=== PATIENT | male | born 1935 | race Caucasian/White ===

== ENCOUNTER → 2019-01-22 | Outpatient (CLI) | payer OTHER ==
[~2019-01-22] MED LIST: AMLO5 PO; ASPI325; ASPI81CH PO; ASPI81EC; ATOR40TA; BACL10 PO; DOCU100 PO; DONE5 PO; FISH1000 PO; GLUC500 PO; HYDR1TAB94 PO; LOVA20 PO; LOVA40 PO; NAPR500 PO; Naprosyn500 MG PO; OXYC5 PO; POLY17UD PO; Percocet 5-3251 EACH PO
== END | disposition home or self-care (01) ==
LOC: LAB SHORT 12:48 → PLD 12:48
DX: D23.122 Other benign neoplasm of skin of left lower eyelid, including canthus (principal)
CPT/HCPCS: 88304

== ENCOUNTER 2020-02-21 19:29 | Emergency (ER) | payer OTHER ==
[~2020-02-21] VITALS: Ht 170.2 cm; Wt 63.5 kg
[2020-02-21 20:43] LABS: BASOPHILS ABSOLUTE AUTO 0.04 K/mm3 (0.00-0.23); BASOPHILS PERCENT AUTO 1 % (0-2); EOSINOPHILS ABSOLUTE AUTO 0.22 K/mm3 (0.00-0.68); EOSINOPHILS PERCENT AUTO 3 % (0-6); Hematocrit 45.3 % (37.0-53.0); Hemoglobin 14.6 g/dL (13.5-17.5); IMMATURE GRAN ABSOLUTE AUTO 0.05 K/mm3 (0.00-0.10); IMMATURE GRAN PERCENT AUTO 1 % (0-1); LYMPHOCYTES ABSOLUTE AUTO 2.69 K/mm3 (0.84-5.20); LYMPHOCYTES PERCENT AUTO 31 % (21-46); MONOCYTES ABSOLUTE AUTO 0.73 K/mm3 (0.16-1.47); MONOCYTES PERCENT AUTO 8 % (4-13); Mean Corpuscular HGB 31.1 pg (26.0-34.0); Mean Corpuscular HGB Conc 32.2 g/dL (31.5-36.5); Mean Corpuscular Volume 97 fL (80-100); Mean Platelet Volume 10.1 fL (9.1-12.4); NEUTROPHILS ABSOLUTE AUTO 5.01 K/mm3 (1.96-9.15); NEUTROPHILS PERCENT AUTO 57 % (41-73); Platelet Count 173 K/mm3 (150-400); RDW Coefficient Variation 13.4 % (11.7-14.2); RDW Standard Deviation 47.9 fL (35.1-46.3); Red Blood Cell Count 4.69 M/mm3 (4.30-5.90); White Blood Cell Count 8.74 K/mm3 (4.00-11.30)
[2020-02-21 20:55] LABS: Alanine Aminotransfer (ALT/SGP 20 U/L (12-78); Albumin, Blood 3.9 g/dL (3.4-5.0); Albumin/Globulin Ratio 1.3 (0.8-1.8); Alk Phos 47 U/L (50-136); Anion Gap 8 mmol/L (6-16); Aspartate Aminotrans (AST/SGOT 28 U/L (12-37); Bilirubin, Total 0.5 mg/dL (0.1-1.0); Blood Urea Nitrogen 24 mg/dL (8-24); CO2, Blood 25 mmol/L (21-32); Calcium, Blood 9.4 mg/dL (8.5-10.1); Chloride, Blood 110 mmol/L (98-108); Globulin, Blood 2.9 g/dL (2.2-4.0); Glomerular Filtration Rate >60 (60-); Glucose, Blood 118 mg/dL (70-99); Potassium, Blood 4.4 mmol/L (3.5-5.5); Sodium, Blood 143 mmol/L (136-145); Total Protein, Blood 6.8 g/dL (6.4-8.2)
[2020-02-21] MEDS ORDERED: LOPE2C PO (22:58)
[2020-02-21] MEDS ORDERED: ONDA4ODT SL (22:58)
[2020-02-22] MEDS ORDERED: DONE5 PO (13:16)
[2020-02-22] MEDS ORDERED: LACT PO (13:17)
[2020-02-22] MEDS ORDERED: ONDA4ODT MM (13:18)
[2020-02-22] MEDS ORDERED: LOPE2C PO (13:18)
== END 2020-02-21 23:30 | disposition home or self-care (01) ==
LOC: ER 19:29
PROVIDERS: Emergency Medicine
DX: R11.2 Nausea with vomiting, unspecified (principal); R19.7 Diarrhea, unspecified; F03.90 Unspecified dementia, unspecified severity, without behavioral disturbance, psychotic disturbance, mood disturbance, and anxiety; I25.2 Old myocardial infarction; Z88.8 Allergy status to other drugs, medicaments and biological substances; Z79.899 Other long term (current) drug therapy; Z79.82 Long term (current) use of aspirin; Z87.891 Personal history of nicotine dependence
CPT/HCPCS: 74018; 80053; 83690; 85025; 93005; 93010; 96361; 96374; 99284-25; J2405; J7030

== ENCOUNTER 2020-02-21 23:47 | Observation (INO) | payer OTHER ==
[~2020-02-21] VITALS: Ht 177.8 cm; Wt 75.4 kg
[~2020-02-21 23:47] MED LIST changes: +LOPE2C PO; +ONDA4ODT SL
--- NOTE | 2020-02-22 01:57 | NUR ---
PATIENT IS A NEW ADMIT FROM THE ED. AXO TO SELF. HX ALZHEIMER. THREE PERSON TRANSFER FROM [facility] TO BED. PIV INTACT AND NS INFUSING AT 100 mL/HR FROM THE ED. NPO. DAUGHTER PRESENT IN ED BUT NOT ON MEDICAL FLOOR. NAME AND NUMBER ON WHITE BOARD GIVEN FROM ED RN. ELDON RUELAS. PATIENT ORIENTED TO ROOM AND CALL LIGHT SYSTEM. BED ALARM ACTIVATED. CALL LIGHT IN REACH.
--- NOTE | 2020-02-22 04:25 | NUR ---
SHIFT SUMMARY PATIENT HAD NO ACUTE CHANGES. AXOX TO SELF AND FAMILY. GARBLED SPEECH. HX ALZHEIMER. VSS/AFEBRILE. DENIES PAIN, SOB, AND N/V. NS INFUSING AT 100 m/HR X ONE AND NEXT BAG NS AT 75 mL/HR X ONE. DAUGHTER NAME AND NUMBER ON WHITE BOARD. PATIENT RESTING T/O SHIFT. CALL LIGHT IN REACH. BED ALARM ACTIVATED AND IN LOWEST POSITION. WILL CONTINUE TO MONITOR UNTIL DAY SHIFT NURSE ASSUMES CARE.
[2020-02-22 05:13] LABS: Hematocrit 42.5 % (37.0-53.0); Hemoglobin 13.8 g/dL (13.5-17.5); Mean Corpuscular HGB 30.5 pg (26.0-34.0); Mean Corpuscular HGB Conc 32.5 g/dL (31.5-36.5); Mean Corpuscular Volume 94 fL (80-100); Platelet Count 214 K/mm3 (150-400); RDW Coefficient Variation 13.6 % (11.7-14.2); RDW Standard Deviation 46.8 fL (35.1-46.3); Red Blood Cell Count 4.52 M/mm3 (4.30-5.90); White Blood Cell Count 12.21 K/mm3 (4.00-11.30)
[2020-02-22 05:37] LABS: Alanine Aminotransfer (ALT/SGP 24 U/L (12-78); Albumin, Blood 3.7 g/dL (3.4-5.0); Albumin/Globulin Ratio 1.3 (0.8-1.8); Alk Phos 45 U/L (50-136); Anion Gap 7 mmol/L (6-16); Aspartate Aminotrans (AST/SGOT 27 U/L (12-37); Bilirubin, Total 0.5 mg/dL (0.1-1.0); Blood Urea Nitrogen 28 mg/dL (8-24); Bun/Creatinine Ratio 28.1 (12.0-20.0); CO2, Blood 26 mmol/L (21-32); Calcium, Blood 9.1 mg/dL (8.5-10.1); Chloride, Blood 108 mmol/L (98-108); Globulin, Blood 2.8 g/dL (2.2-4.0); Glomerular Filtration Rate >60 (60-); Glucose, Blood 113 mg/dL (70-99); Potassium, Blood 4.3 mmol/L (3.5-5.5); Sodium, Blood 141 mmol/L (136-145); Total Protein, Blood 6.5 g/dL (6.4-8.2)
--- NOTE | 2020-02-22 05:50 | NUR ---
PATIENT BED EXIT ALARMS X THREE. TRYING TO GET OUT OF BED. NOT ABLE TO ORIENT AT THIS TIME. PULLING AT TELEMETRY LEADS AND PULLING AT PIV LINES. PATIENT BACK IN BED BUT WAKING UP AND NOT WANTING TO STAY IN BED. CALL LIGHT IN REACH. BED ALARM ACTIVATED.
--- NOTE | 2020-02-22 07:00 | NUR ---
ASSUMED CAR EOF PT- BEDSIDE REPORT COMPLETED WITH NIGHT RN RADHA. PT IN ISOLATION FOR R/O C-DIFF NO SAMPLE SENT AT THIS TIME. PT ALERT AND ORIENTED TO SELF. PT IS CONFUSED AND EXIT SEEKING, ADMITTED FOR ACUTE GASTROENTERITIS. ADMISSION COMPLETED PER REPORT. PT DAUGHTERS NAME IS ON THE BOARD.
--- NOTE | 2020-02-22 07:06 | NUR ---
HOSPITALIST DR COOPER ORDERED HUNG REDDY. PATIENT HAVING MULTIPLE BED EXIT ATTEMPTS. PULLING TELE LEADS OFF. PULLING AT PIV AND PULLED WRAP OFF PIV. NOT ABLE TO ORIENT AT THIS TIME. HX ALZHEIMER'S.
--- NOTE | 2020-02-22 08:00 | NUR ---
PT REMOVED THE HUNG VEST WHILE LAYING IN BED WHILE IT WAS STILL SNUGLY TIED, GOT A SMALLER HUNG VEST AND REPLACED IT. PT REMOVED TELE OBSCURED THE LINES AND TUBES. PT NOT CURRENTLY PULLING THE IV BUT SEEMS TO FIDDLE CONSTANTLY WITH LINES.
--- NOTE | 2020-02-22 09:00 | NUR ---
PT GOT OUT OF YET ANOTHER HUNG VEST AGAIN GOT A SMALLER SIZED VEST AND REPLACED IT. PT WAS OUT OF BED TELE OFF IV REMOVED. CALLED DR BROOKS AND REQUESTED NO IV ACCESS AND DC TELE OR INCREASE RESTRAINT TO PROTECT LINES AND TUBES. RECIEVED NEW ORDER FOR BILATERAL WRIST RESTRAINTS. AND PLACE NEW IV WELL DC TELE.
[2020-02-22 09:59] LABS: Adenovirus F 40/41 Not Detected (NOT DETECT); Astrovirus Not Detected (NOT DETECT); Campylobacter Sp Not Detected (NOT DETECT); Cryptosporidium Not Detected (NOT DETECT); Cyclospora Cayetanensis Not Detected (NOT DETECT); E. Coli O157 Not Detected (NOT DETECT); Entamoeba Histolytica Not Detected (NOT DETECT); Enteroaggregative E. coli-EAEC Not Detected (NOT DETECT); Enteropathogenic E. coli-EPEC Not Detected (NOT DETECT); Enterotoxigenic E. coli-ETEC Not Detected (NOT DETECT); Giardia Lamblia Not Detected (NOT DETECT); Norovirus GI/GII Not Detected (NOT DETECT); Plesiomonas Shigelloides Not Detected (NOT DETECT); Rotavirus A Not Detected (NOT DETECT); Salmonella Sp Not Detected (NOT DETECT); Sapovirus Not Detected (NOT DETECT); Shiga Toxin-prod E. coli-STEC Not Detected (NOT DETECT); Shigella/Enteroin E. coli-EIEC Not Detected (NOT DETECT); Vibrio Cholerae Not Detected (NOT DETECT); Vibrio Sp Not Detected (NOT DETECT); Yersinia Enterocolitica Not Detected (NOT DETECT)
[2020-02-22] MEDS ORDERED: DONE5 PO (13:16)
[2020-02-22] MEDS ORDERED: LACT PO (13:17)
[2020-02-22] MEDS ORDERED: ONDA4ODT MM (13:18)
[2020-02-22] MEDS ORDERED: LOPE2C PO (13:18)
--- NOTE | 2020-02-22 13:53 | NUR ---
DISCHARGE INSTRUCTIONS GIVEN TO PATIENT TO TAKE HOME TO DAUGHTER TO REVIEW. PATIENT UNABLE TO SIGN DUE TO CONDITION/COGNITION. EDUCATIONAL MATERIAL ALSO PROVIDED. PRESCRIPTIONS FAXED TO [facility] AND THIS WAS TOLD TO DAUGHTER. PATIENTS IV DISCONTINUED AND HIS DAUGHTER JUST NOW ARRIVED TO TRANSPORT THE PATIENT HOME. PATIENT TO BE ASSISTED OUT IN A WHEEL CHAIR BY GRAPPLE SKIDDER OPERATOR. DISCHARGE AT 1355.
== END 2020-02-22 14:06 | disposition home or self-care (01) ==
LOC: ER 23:47 → MEDS 23:48
PROVIDERS: Emergency Medicine; ADMIT Internal Medicine
DX: K52.9 Noninfective gastroenteritis and colitis, unspecified (principal); F03.90 Unspecified dementia, unspecified severity, without behavioral disturbance, psychotic disturbance, mood disturbance, and anxiety; E86.0 Dehydration; R53.1 Weakness; I10 Essential (primary) hypertension; I25.10 Atherosclerotic heart disease of native coronary artery without angina pectoris; I25.2 Old myocardial infarction; E78.5 Hyperlipidemia, unspecified; Z79.899 Other long term (current) drug therapy; Z79.82 Long term (current) use of aspirin; Z88.8 Allergy status to other drugs, medicaments and biological substances
CPT/HCPCS: 0097U; 36415; 80053; 82272; 83735; 83880; 85027; 96360; 96361; 96372; 96374; 99284; A9270-GY; G0378; J1650; J2405; J7030